=== PATIENT | male | born 1995 | race Hispanic/Latino ===

== ENCOUNTER 2019-03-23 15:39 | Emergency (ER) | payer OTHER ==
[2019-03-23 16:02] VITALS: BP 138/90
--- NOTE | 2019-03-23 16:16 | Emergency Department Report ---
HPI - General Time Seen by Provider: 03/23/19 15:56 - HPI HPI: 23 year old male presents to the emergency department from work after a piece of metal fell down and hit him in the head while he was trying to change a tire. He denies any loss of consciousness but says "I stumbled." He has a small abrasion to the front of his scalp and top of his forehead, which is where he has pain. He denies any vision change, slurred speech or any neurological deficits. He has not taken anything for his symptoms prior to arrival today. He denies any past medical history. ED Past Medical Hx - Past Medical History Previous Medical History?: No Hx Hypertension: No Hx CVA: No Hx Heart Attack/AMI: No Hx Congestive Heart Failure: No Hx Diabetes: No Hx Deep Vein Thrombosis: No Hx Pulmonary Embolism: No Hx GERD: No Hx Liver Disease: No Hx Renal Disease: No Hx of Cancer: No Hx Sickle Cell Disease: No Hx Arthritis: No Hx Headaches / Migraines: No Hx Seizures: No Hx Kidney Stones: No Hx Psychiatric Treatment: No Hx Asthma: No Hx COPD: No Hx Tuberculosis: No Hx Dementia: No Hx HIV: No - Surgical History Past Surgical History?: Yes Hx Coronary Stent: No Hx Open Heart Surgery: No Hx Pacemaker: No Hx Internal Defibrillator: No Hx Cholecystectomy: No Hx Appendectomy: No Hx Breast Surgery: No Additional Surgical History: shoulder surgery - Social History Smoking Status: Never Smoker Substance Use Type: None ED Review of Systems ROS: Stated complaint: HEAD PAIN Other details as noted in HPI Comment: All other systems reviewed and negative Constitutional: denies: chills, fever Eyes: denies: eye pain, vision change ENT: denies: ear pain, throat pain Respiratory: denies: cough, shortness of breath Cardiovascular: denies: chest pain, palpitations Gastrointestinal: denies: abdominal pain, vomiting Genitourinary: denies: dysuria, discharge Musculoskeletal: denies: back pain, arthralgia Skin: denies: rash, pruritus Neurological: headache. denies: weakness Physical Exam - Physical Exam Vital Signs: Vital Signs 03/23/19 15:56 Temperature 98.6 F Pulse Rate 90 Respiratory 18 Rate Blood Pressure 138/90 Blood Pressure 138/90 [Right] O2 Sat by Pulse 100 Oximetry Physical Exam: GENERAL: The patient is well-developed well-nourished. HENT: Normocephalic. Atraumatic. Patient has moist mucous membranes. EYES: Extraocular motions are intact. Pupils equal reactive to light bilaterally. No nystagmus. Cranial nerves II through XII grossly intact. NECK: Supple. Trachea is midline. CHEST/LUNGS: Clear to auscultation. There is no respiratory distress noted. HEART/CARDIOVASCULAR: Regular. There is no tachycardia. There is no murmur. ABDOMEN: There is no abdominal distention. SKIN: Skin is warm and dry. There is a small abrasion to the middle top of the forehead and the anterior scalp. No current bleeding, weeping, drainage. NEURO: The patient is awake, alert, and oriented. The patient is cooperative. The patient has no focal neurologic deficits. The patient has normal speech. MUSCULOSKELETAL: There is no tenderness or deformity. There is no limitation range of motion. There is no evidence of acute injury. ED Course Vital Signs 03/23/19 15:56 Temperature 98.6 F Pulse Rate 90 Respiratory 18 Rate Blood Pressure 138/90 Blood Pressure 138/90 [Right] O2 Sat by Pulse 100 Oximetry ED Medical Decision Making - Radiology Data Radiology results: report reviewed CT BRAIN: 03/23/2019 INDICATION / CLINICAL INFORMATION: head trauma. COMPARISON: None available. FINDINGS: BRAIN/INTRACRANIAL STRUCTURES: Unenhanced CT images of the brain demonstrate no evidence of acute intracranial abnormality. Ventricles and sulci are normal in size and shape. There is no evidence of hemorrhage or mass. There are no abnormal extra-axial fluid collections. EXTRACRANIAL STRUCTURES: Unremarkable. IMPRESSION: Negative unenhanced CT of the brain. - Medical Decision Making This patient presents to the emergency department after he was hit on the head by some type of metal contraption that he uses to change tires at work. There was no loss of consciousness. On examination there is no focal, motor or sensory deficits and his cranial nerves are intact. A CT scan of the head was done that does not show any skull fracture, brain bleed, ischemia, swelling, shift, or any other acute process. Patient was seen and released to the emergency Department upon discharge and appears stable. He will follow-up with his Worker's Compensation physician or his primary care physician. We discussed wound care and monitoring for infection of the abrasion on his forehead and scalp. He will return to the ER with any worsening of his symptoms or any acute distress. - Differential Diagnosis skull fracture, subarachnoid, abrasion, laceration, concussion Critical Care Time: No Critical care attestation.: If time is entered above; I have spent that time in minutes in the direct care of this critically ill patient, excluding procedure time. ED Disposition Clinical Impression: Head trauma Qualifiers: Encounter type: initial encounter Qualified Code(s): S09.90XA - Unspecified injury of head, initial encounter Scalp abrasion Qualifiers: Encounter type: initial encounter Qualified Code(s): S00.01XA - Abrasion of scalp, initial encounter Disposition: TO HOME OR SELFCARE Is pt being admited?: No Condition: Stable Instructions: Minor Head Injury (ED), Abrasion (ED) Additional Instructions: Please follow up with her primary care physician or whomever you are directed to see for Worker's Compensation. He can clean the abrasion on the forehead/scalp with soap and water but then keep it dry. Make sure you are seen immediately with any signs or symptoms of infection such as surrounding redness, increased pain, swelling, development of fever, or discharge of pus. Return to the emergency Department with any worsening of her symptoms or any acute distress. Referrals: Primary Care Provider, Your [Other] - 2-3 Days Time of Disposition: 18:18
[2019-03-23 17:21] LABS: Amphetamine Screen,Urine PRESUMPTIVE NEGATIVE; Benzodiazepines Screen,Urine PRESUMPTIVE NEGATIVE; Cannabinoid Screen,Urine PRESUMPTIVE NEGATIVE; Cocaine Screen,Urine PRESUMPTIVE NEGATIVE; Methadone Screen,Urine PRESUMPTIVE NEGATIVE; Opiate Screen,Urine PRESUMPTIVE NEGATIVE
--- NOTE | 2019-03-23 18:03 | Cat Scan Report ---
CT BRAIN: 03/23/2019 INDICATION / CLINICAL INFORMATION: head trauma. COMPARISON: None available. FINDINGS: BRAIN/INTRACRANIAL STRUCTURES: Unenhanced CT images of the brain demonstrate no evidence of acute int racranial abnormality. Ventricles and sulci are normal in size and shape. There is no evidence of hemorrhage or mass. There are no abnormal extra-axial fluid collections. EXTRACRANIAL STRUCTURES: Unremarkable. IMPRESSION: Negative unenhanced CT of the brain. All CT scans at this location are performed using dose reduction to ALARA by means of automated expos ure control. Signer Name: Mason Sheriff MD Signed: 03/23/2019 5:58 PM Workstation Name: [id number]
== END 2019-03-23 18:40 | disposition home or self-care (01) ==
LOC: ED 15:39
DX: S00.01XA Abrasion of scalp, initial encounter (principal); Z88.5 Allergy status to narcotic agent; W01.198A Fall on same level from slipping, tripping and stumbling with subsequent striking against other object, initial encounter; Y93.89 Activity, other specified; Y92.69 Other specified industrial and construction area as the place of occurrence of the external cause; Y99.8 Other external cause status
CPT/HCPCS: 70450; 80307; 99284